=== PATIENT | male | born 1965 | race Two or more races ===

== ENCOUNTER 2018-12-13 16:10 | Emergency (ER) | payer OTHER, SELFPAY ==
[2018-12-13 16:12] VITALS: BP 187/114; PULSE 90; RESP 21; TEMP 36.7; O2SAT 96; BMI 33.7
--- NOTE | 2018-12-13 16:21 | EKG12_ITS ---
Test Reason : DIZZY Blood Pressure : / mmHG Vent. Rate : 089 BPM Atrial Rate : 089 BPM P-R Int : 144 ms QRS Dur : 108 ms QT Int : 370 ms P-R-T Axes : 032 081 034 degrees QTc Int : 450 ms Normal sinus rhythm Normal ECG Confirmed by MERON TIJERINA, ILYA ([id number]), restaurant expeditor ASHLEY KIRBY ([id number]) on 12/17/2018 10:27:27 AM Referred By: RUBI/LUIS Confirmed By:ILYA CHANCE MD
[2018-12-13 16:32] LABS: Absolute Lymphocyte Count 2.29 X10^3/ul (0.83-4.51); Absolute Neutrophil Count 3.3 X10^3/uL (2.0-7.7); Basophil# 0.04 X10^3/uL; Basophil% 0.6 % (0-1); Eosinophil# 0.14 X10^3/uL; Eosinophils% 2.2 % (0-5); Hemoglobin 14.2 g/dl (13.0-16.5); Lymphocyte # 2.29 X10^3/ul (4.0); Lymphocyte % 35.4 % (19-41); Mean Corp Hgb Conc 33.8 g/gl (32-36); Mean Corpuscular Hgb 29.2 pg (27.0-32.0); Mean Corpuscular Volume 86.4 fL (80-94); Mean Platelet Vol. 9.9 fl (6.2-12.0); Monocyte# 0.72 X10^3/uL; Monocyte% 11.1 % (0-10); Neutrophil # 3.26 X10^3/uL (2.7-7.7); Neutrophil % 50.4 % (47-70); Platelet Count 278 K/mm3 (150-450); RBC Distribution Width CV 12.7 % (11.6-14.6); RBC Distribution Width SD 39.4 fl (35.1-43.9); Red Blood Count 4.86 M/mm3 (4.6-6.2); White Blood Count 6.5 K/mm3 (4.4-11.0)
[2018-12-13 16:33] LABS: POSITIVE COUNT NO; POSITIVE DIFFERENTIAL NO; POSITIVE MORPHOLOGY NO
[2018-12-13] MEDS: 0.9% Normal Saline 1,000 ML 1000 ML IV (16:35)
[2018-12-13 16:47] LABS: Carboxyhemoglobin Frac (CO) 0.9 % (0.0-1.5)
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
[2018-12-13 16:54] LABS: Anion Gap 8 (5-15); BUN 21 mg/dL (7-18); BUN/Creat Ratio 14.6 RATIO (10-20); Calcium,Total 8.6 mg/dL (8.5-10.1); Chloride 106 mmol/L (98-107); Creatinine, Serum 1.44 mg/dL (0.70-1.30); EST Glomerular Filtration Rate 55 mL/min (>60); Est Glom Filt Rate - Afr Amer 66 mL/min (>60); Estimated Creatinine Clearance 74.77 ml/min; Glucose 96 mg/dL (74-106); Potassium 4.1 mmol/L (3.5-5.1); Sodium Level 139 mmol/L (136-145)
[2018-12-13 17:20] VITALS: BP 158/99; BP 160/102; BP 160/103; PULSE 71; PULSE 75; PULSE 84
--- NOTE | 2018-12-13 17:26 | ED.DEP ---
ED Disposition - Plan for ED Patient: Instructions: ED Dizziness [facility], ED Exhaustion Heat Referrals: Padmini Nino DO [Primary Care Provider] - 3-5 Days [facility]] - 3-5 Days
== END 2018-12-13 17:35 | disposition home or self-care (01) ==
LOC: ED 16:33
PROVIDERS: Emergency Provider Emergency Medicine; Family Provider Internal Medicine; PCP Internal Medicine
DX: T67.5XXA Heat exhaustion, unspecified, initial encounter (principal); Y26.XXXA Exposure to smoke, fire and flames, undetermined intent, initial encounter; Y93.89 Activity, other specified; Y92.9 Unspecified place or not applicable; Y99.0 Civilian activity done for income or pay; R42 Dizziness and giddiness
CPT/HCPCS: 80048; 82375; 84484; 85025; 93005; 96360; 99285; J7030